=== PATIENT | male | born 1960 | race Caucasian/White ===

== ENCOUNTER 2020-12-31 14:22 | Emergency (ER) | payer SELFPAY ==
[~2020-12-31] VITALS: Ht 175.3 cm; Wt 100.0 kg
[~2020-12-31 14:22] MED LIST: ACET325T26 PO; AMLO-211 PO; ASPI81TA45 PO; CARV25TA12 PO; DOXA2TAB9 PO; HYDR-3343 PO; MAGN400T50 PO; PANT40TA6 PO; POTA20TA6 PO; WARF-36 PO-COUM
--- NOTE | 2020-12-31 15:08 | NUR ---
PT IN GOWN IN [facility] AND ATTACHED TO VS MONITORS. VSS AT THIS TIME. PT EDUCATED ON ER PROCESS AND POC AND VERBALIZES UNDERSTANDING. CALL LIGHT IS WITHIN REACH. AWAITING ERP FOR PT HISTORY AND ASSESSMENT AT THIS TIME.
[2020-12-31 16:31] LABS: BASOPHILS % (AUTO) 1 % (0-1); EOSINOPHILS % (AUTO) 2 % (1-7); LYMPHOCYTES % (AUTO) 28 % (22-44); MEAN CORPUSCULAR HEMOGLOBIN 30.3 pg (27.5-34.5); MEAN CORPUSCULAR HGB CONC 34.2 g/dL (33.2-36.2); MEAN PLATELET VOLUME 8.7 fL (7.4-10.4); MONOCYTES % (AUTO) 10 % (2-9); NEUTROPHILS % (AUTO) 59 % (42-75); PLATELET COUNT 185 x10^3/uL (130-400); RED BLOOD COUNT 4.61 x10^6/uL (4.38-5.82); RED CELL DISTRIBUTION WIDTH 14.4 % (9.4-14.8)
[2020-12-31 16:34] LABS: MD NO
[2020-12-31 16:44] LABS: ALBUMIN 3.7 g/dL (3.4-5.0); ANION GAP 5 mmol/L (5-15); CALCIUM 8.1 mg/dL (8.5-10.1); CHLORIDE 114 mmol/L (98-107); CREATININE 1.37 mg/dL (0.7-1.3)
[2020-12-31 16:48] LABS: TROPONIN I < 0.015 ng/mL (0.000-0.045)
[2020-12-31 17:23] VITALS: BP 142/93
--- NOTE | 2020-12-31 17:34 | NUR ---
PT CAROTID DUPLEX US COMPLETE AT THIS TIME. PT TOLERATED WELL. PT AMBULATES TO RESTROOM WITH STEADY GAIT. PT DENIES ANY OTHER NEEDS AT THIS TIME AND PT ASSISTED BACK TO [facility] AND REATTACHED TO VS MONITORS.
--- NOTE | 2020-12-31 18:28 | NUR ---
PT D/C WITH D/C SUMMARY. ALL QUESTIONS ANSWERED. PT AMBULATES TO REGISTRATION DESK WITH STEADY GAIT FOR D/C HOME AND DENIES ANY OTHER NEEDS PERTAINING TO THIS VISIT. PT PROVIDED REFERRAL TO [facility]. PT VERBALIZES NEED TO F/U.
== END 2020-12-31 18:31 | disposition home or self-care (01) ==
LOC: ED 18:30
DX: I10 Essential (primary) hypertension (principal); M54.2 Cervicalgia; H54.61 Unqualified visual loss, right eye, normal vision left eye; I25.2 Old myocardial infarction; R06.02 Shortness of breath; R00.9 Unspecified abnormalities of heart beat
CPT/HCPCS: 36415; 70551; 71045; 80048; 82040; 84484; 85025; 93880; 99285